=== PATIENT | male | born 2000 | race Caucasian/White ===

== ENCOUNTER 2024-09-24 18:26 | Emergency (ER) | payer SELFPAY ==
[2024-09-24 19:40] LABS: BASOPHILS ABSOLUTE AUTO 0.11 K/uL (0.00-0.10); BASOPHILS PERCENT AUTO 0.9 % (0.1-1.3); EOSINOPHILS ABSOLUTE AUTO 0.07 K/uL (0.00-0.40); EOSINOPHILS PERCENT AUTO 0.5 % (0.0-5.4); IMMATURE GRAN ABSOLUTE AUTO 0.06 K/uL (0.00-0.23); IMMATURE GRAN PERCENT AUTO 0.5 % (0.0-0.7); LYMPHOCYTES ABSOLUTE AUTO 2.41 K/uL (0.8-3.3); LYMPHOCYTES PERCENT AUTO 18.7 % (11.4-47.7); MONOCYTES ABSOLUTE AUTO 0.83 K/uL (0.20-0.90); MONOCYTES PERCENT AUTO 6.4 % (3.3-12.6); NEUTROPHILS ABSOLUTE AUTO 9.40 K/uL (1.0-7.6); NEUTROPHILS PERCENT AUTO 73.0 % (40.0-78.1); PLATELET COUNT,PLT 286 K/uL (130-375); RED BLOOD CELL COUNT 5.46 M/uL (4.14-5.76); WHITE BLOOD CELL COUNT,WBC 12.9 K/uL (3.2-11.0)
[2024-09-24 19:55] LABS: BLOOD UREA NITROGEN,BUN 10.0 mg/dL (7-18); CARBON DIOXIDE,CO2 26.0 mmol/L (21-32); CHLORIDE,CL 97.0 mmol/L (100-108); CREATININE 0.9 mg/dL (0.8-1.3); EST CRCL DRUG DOSING (CG) 119.77 mL/min; ESTIMATED GFR 124.0 mL/min (>60); GLUCOSE RANDOM 78.0 mg/dL (74-106); POTASSIUM,K 4.0 mmol/L (3.6-5.2); SODIUM,NA 137.0 mmol/L (140-148)
[2024-09-24] MEDS: Sodium Chloride 0.9% 10 ML Syringe FLUSH ONE (20:58)
[2024-09-24] MEDS: Iopamidol 755 Mg/ML 100 ML Bottle IV SCH (20:58)
== END 2024-09-24 22:15 | disposition home or self-care (01) ==
LOC: JP.ED 18:26
DX: J22 Unspecified acute lower respiratory infection (principal)
CPT/HCPCS: 36415; 71046; 71275; 80048; 85025; 85379; 99285; Q9967; 99283